=== PATIENT | male | born 1990 | race Caucasian/White ===

== ENCOUNTER 2021-04-12 14:18 | Emergency (ER) | payer OTHER ==
[~2021-04-12 14:18] MED LIST: CILOXAN5 ML EYERT
== END 2021-04-12 15:50 | disposition home or self-care (01) ==
LOC: FER 14:18
DX: S61.411A Laceration without foreign body of right hand, initial encounter (principal); F17.210 Nicotine dependence, cigarettes, uncomplicated; Z23 Encounter for immunization; W26.8XXA Contact with other sharp object(s), not elsewhere classified, initial encounter; Y92.009 Unspecified place in unspecified non-institutional (private) residence as the place of occurrence of the external cause
CPT/HCPCS: 90471; 90715